=== PATIENT | female | born 1980 | race Caucasian/White ===

== ENCOUNTER 2018-02-03 09:33 | Emergency (ER) | payer OTHER ==
[~2018-02-03] VITALS: Ht 157.5 cm; Wt 68.0 kg
[2018-02-03] MEDS ORDERED: BACTRIM DS TAB1 EACH PO (11:34)
[2018-02-03] MEDS ORDERED: [UNRECOGNIZED DRUG - OTHER] PO (11:38)
== END 2018-02-03 12:35 | disposition home or self-care (01) ==
LOC: ER 09:33
DX: N39.0 Urinary tract infection, site not specified (principal)